=== PATIENT | female | born 1980 | race Caucasian/White ===

== ENCOUNTER 2021-10-09 01:17 | Day surgery (SDC) | payer BC, SELFPAY ==
[2021-10-03 08:43] VITALS: BMI 33.4
--- NOTE | 2021-10-03 09:12 | PC.NURSE ---
Report to the Outpatient Waiting Room, entrance under the green pavilion located off [facility], at 0700 on 10-09-21. OR Time: 0900. - You and your visitor will be asked a series of questions to screen for COVID 19 for your protection. - Only one visitor is allowed at this time. - The patient visitor is requested to leave or wait in car when not with patient. - A mask is required within the hospital. Patients may have clear liquids (water, carbonated beverages, clear teas, apple juice) until 3 hours prior to surgery with a maximum of 20 ounces. 0600 - No food from midnight until time of surgery - Infants may have breast milk until 4 hours before surgery, infant formula 6 hours prior to surgery. - Children will be allowed to drink immediately following surgery. If applicable, please bring a bottle or sippy cup to assist with drinking. Juice, water, soda, and popsicles are readily available. For infants on formula, please bring formula the day of surgery. Pacifiers are allowed. Take the following medications with a SIP of water the morning of surgery: control Medications to discontinue per physician: vitamins and supplements Date to take last dose: 10-06-21 Please no make-up, nail yi, hairspray, perfume, deodorant, or body powder the day of surgery. No jewelry (including any body piercings) or valuables the day of surgery, leave them at home. Please take a shower or bath the night before, or the morning of, surgery with an antibacterial soap. Wear comfortable, loose fitting clothing. Children are encouraged to wear pajamas. - Jewelry must be removed prior to entering the operating room. Rings and piercings that are not removed may be cut off. - The hospital will not accept responsibility for valuables. - Please leave all valuables, including medications, at home the day of surgery. If you are going home after surgery, a licensed full service vending driver must drive you home. - NO public transportation without another adult. - We recommend that an adult stay with you for 24 hours following discharge. - We also recommend that you do not drive, make important decision, drink alcoholic beverages, or take any drugs that were not prescribed by your health care provider for at least 24 hours after your discharge time. For Pediatric surgeries, we recommend two adults accompany the child home (only one inside the building at this time). Follow any additional instructions given to you from your surgeon. If you or anyone in your household have experienced Covid symptoms in the past week, please notify your surgeon or the nurse liaison at the phone number below for possible testing. Telephone instructions given to Galina Louise and asked if any additional questions and then verbalized understanding. Patient advised to call surgeon office or pre surgery nurse liaison [phone] if any additional questions.
--- NOTE | 2021-10-08 18:17 | PM.IMHP ---
H&P: HPI History of Present Illness Date/Time: 10/08/21 18:17 41-year-old 4 para 07/17/2002 female presents for permanent sterilization as well as evaluation of left adnexal cyst. Regarding the tubal sterilization we have discussed the permanence failure rate increased risk of ectopic and regret. She strongly desires to proceed. She has had an endometrial ablation in the past and no bleeding. She does relate some pelvic discomfort and ultrasound revealed a 2cm left adnexal cyst earlier this month. We will evaluate pelvis and removed if present. Chief Complaint: undesired fertility Review of Systems Review of Systems: All systems reviewed & are unremarkable except as noted in HPI and below PMFSH Past Medical History Medical History Abnormal Pap smear of cervix 2002 dysplasia Anxiety Asthma Foot fracture, left Gestational hypertension Ovarian cyst 2011,2013 Restless leg syndrome Screening mammogram, encounter for Surgical History Surgical History H/O LEEP 03/29/18 hscope d&c/novasure ablation/leep--irregular vaginal bleeding & cervical lesion--acute & chronic cervicitis History of dilation and curettage 03/29/18 hscope d&c/novasure ablation/leep--irregular vaginal bleeding & cervical lesion--acute & chronic cervicitis History of endometrial ablation 03/29/18 hscope d&c/novasure ablation/leep--irregular vaginal bleeding & cervical lesion--acute & chronic cervicitis History of laparoscopy 06/29/14 dx lscope--pelvic pain/dyspareunia History of sinus surgery 1997 sinus window/deviated septum 01/16/2014 scar tissue History of tonsillectomy and adenoidectomy 191 Family History Family History Grandparent Diabetes mellitus maternal grandfather maternal grandmother paternal grandfather Heart disease maternal grandfather Hypertension maternal grandfather Malignant neoplasm of lung paternal grandfather Parkinsons disease maternal grandfather Breast cancer paternal grandmother Mother Diabetes mellitus Hypertension Other Heart disease maternal uncle Father Hypertension Other Family history of alcoholism Family history of arthritis Family history of heart disease in male family member before age 55 Family history of mental disorder Social History Social History Smoking status: Never smoker Second hand tobacco smoke exposure: No Alcohol intake: current Drinks per week: 2 Alcohol use details: ocassional Substance use: never Substance use type: does not use Additional living arrangements comments: Additional occupation/education comments: educator Gender identity (if verbalized by the patient): Female Sexual Orientation (if Verbalized by the Patient): Straight or Heterosexual Spiritual care concerns: No Meds Home Medications and Allergies Home Medications Medication Instructions Recorded Confirmed Type bupropion HCl 300 mg 24 hr tablet, 300 mg PO HS 08/12/21 10/03/21 History extended release norethindrone 1 mg-ethinyl 1 tablet PO DAILY #84 tabs 09/13/21 10/03/21 Rx estradiol 10 mcg (24)-iron 10 mcg(2) tablet (Lo Loestrin Fe) cholecalciferol (vitamin D3) 50 50 mcg PO DAILY 10/03/21 10/03/21 History mcg (2,000 unit) tablet (Vitamin D3) Allergies Allergy/AdvReac Type Severity Reaction Status Date / Time shellfish derived Allergy Intermediate Rash Verified 10/03/21 08:42 amoxicillin Allergy Unknown vomiting Verified 10/03/21 08:41 and rash Penicillins Allergy Unknown vomiting Verified 10/03/21 08:41 and rash Sulfa (Sulfonamide Allergy Unknown rash Verified 10/03/21 08:41 Antibiotics) sulfanilamide Allergy Unknown rash Verified 09/15
[2021-10-09] VITALS (11 sets, daily range): BP systolic 120–157; BP diastolic 77–97; PULSE 59–87; RESP 14–20; TEMP 36.3–36.7; O2SAT 98–100
[2021-10-09] MEDS: ACETAMINOPHEN 500 MG TABLET 1000 MG PO (07:14)
[2021-10-09] MEDS: LACTATED RINGERS 1,000 ML 30 ML IV CONT ×2 (07:40→10:09)
[2021-10-09] MEDS: KETOROLAC 15 MG/ML VIAL (*BKC) IV PUSH (07:47)
--- NOTE | 2021-10-09 07:55 | WPDANESEPPF ---
Anes - Initial Pre Proc Eval Procedure: Operation Date: 10/09/21 09:00 Proposed Procedures p Laparoscopic Bilateral Salpingectomy, with Laparoscopic Left Ovarian Cyst - Juan Pablo Orr MD Date/Time: 10/09/21 07:55 Surgeon: Juan Pablo Orr MD Pre Op Diagnosis: desires sterilization, left ovarian cyst Patient Data Age: 41 Gender: F Height: 1.73 m Weight: 99.79 kg Allergies Allergy/AdvReac Type Severity Reaction Status Date / Time shellfish derived AdvReac Intermediate Rash Verified 10/09/21 07:13 amoxicillin AdvReac Mild vomiting Verified 10/09/21 07:13 and rash Penicillins AdvReac Mild vomiting Verified 10/09/21 07:13 and rash Sulfa (Sulfonamide AdvReac Mild rash Verified 10/09/21 07:13 Antibiotics) sulfanilamide AdvReac Mild rash Verified 10/09/21 07:13 Home Medications Medication Instructions Recorded Confirmed Type bupropion HCl 300 mg 24 hr tablet, 300 mg PO HS 08/12/21 10/09/21 History extended release norethindrone 1 mg-ethinyl 1 tablet PO DAILY #84 tabs 09/13/21 10/09/21 Rx estradiol 10 mcg (24)-iron 10 mcg(2) tablet (Lo Loestrin Fe) cholecalciferol (vitamin D3) 50 50 mcg PO DAILY 10/03/21 10/09/21 History mcg (2,000 unit) tablet (Vitamin D3) Patient hx anesthesia problems: none Family hx anesthesia problems: none Results Review: All pre-operative results and documents have been reviewed as part of the pre-operative evaluation. [facility] Past Medical History Medical History Abnormal Pap smear of cervix 2003 dysplasia Anxiety Asthma Foot fracture, left Gestational hypertension Ovarian cyst 2011,2013 Restless leg syndrome Screening mammogram, encounter for Surgical History Surgical History H/O LEEP 03/29/18 hscope d&c/novasure ablation/leep--irregular vaginal bleeding & cervical lesion--acute & chronic cervicitis History of dilation and curettage 03/29/18 hscope d&c/novasure ablation/leep--irregular vaginal bleeding & cervical lesion--acute & chronic cervicitis History of endometrial ablation 03/29/18 hscope d&c/novasure ablation/leep--irregular vaginal bleeding & cervical lesion--acute & chronic cervicitis History of laparoscopy 06/29/14 dx lscope--pelvic pain/dyspareunia History of sinus surgery 1996 sinus window/deviated septum 01/16/2014 scar tissue History of tonsillectomy and adenoidectomy 191 Family History Family History Grandparent Diabetes mellitus maternal grandfather maternal grandmother paternal grandfather Heart disease maternal grandfather Hypertension maternal grandfather Malignant neoplasm of lung paternal grandfather Parkinsons disease maternal grandfather Breast cancer paternal grandmother Mother Diabetes mellitus Hypertension Other Heart disease maternal uncle Father Hypertension Other Family history of alcoholism Family history of arthritis Family history of heart disease in male family member before age 55 Family history of mental disorder Social History Social History Smoking status: Never smoker Second hand tobacco smoke exposure: No Alcohol intake: current Drinks per week: 2 Alcohol use details: ocassional Substance use: never Substance use type: does not use Living arrangements: with family Additional living arrangements comments: Additional occupation/education comments: educator Gender identity (if verbalized by the patient): Female Sexual Orientation (if Verbalized by the Patient): Straight or Heterosexual Spiritual care concerns: No Anes - Eval Final PreProcedure Day of Procedure 10/09/21 07:55 Patient weight: obese Heart: regular rate and rhythm Lungs: wyatt
--- NOTE | 2021-10-09 08:16 | WPDHPUPDATE1 ---
History and Physical Update Update Date/Time: 10/09/21 08:16 History and Physical has been reviewed, including an updated exam of the patient. There are NO changes in the patient's condition. Risks, benefits, and alternatives have been discussed and questions answered. Patient agrees to proceed with procedure.
--- NOTE | 2021-10-09 09:19 | W.PM.PROC2 ---
Procedure Note - Detailed Date of Procedure 10/09/21 Pre-op Diagnosis desires sterilization, left ovarian cyst Post-op Diagnosis Other (1. Desires sterilization 2. Right ovarian cyst) Procedure Performed 1. Bilateral salpingectomy 2. Right ovarian cystectomy Surgeon Juan Pablo Orr MD Anesthesia General Indications 1. Undesired fertility 2. Pelvic pain Findings 1. Right ovarian cyst clear fluid filled approximate 2-3 cm. Description of Procedure Patient prepped in usual manner for this procedure cervical os from placed uterine mobility throughout the case. Abdominal trocar sites were placed under direct visualization and bilaterally the tubes were removed with the Harmonic scalpel by cauterizing cutting the mesial salpinx bilaterally and these were removed without difficulty. Right ovarian cyst was noted and the ovary was incised and cyst removed without difficulty. Small amount of oozing therefore Hemabate was placed. Gas was allowed to escape ovarian cyst bed was hemostatic without pressure and all the incisions were approximated using 4-0 Monocryl. Patient sent to recovery room stable condition. Estimated Blood Loss 50 Complications No immediate complications Condition Stable Disposition PACU [facility] Billing Surgery - Charge Forward: Surgery Billing
[2021-10-09] MEDS: fentaNYL CITRATE INJ (*CRX) 100 MCG/2 ML VIAL 25 MCG IV PUSH ×4 (09:53→10:38)
[2021-10-09] MEDS: ONDANSETRON INJ 4 MG/2 ML VIAL IV PUSH (11:08)
== END 2021-10-09 12:35 | disposition home or self-care (01) ==
PROVIDERS: PCP Internal Medicine; Visit Provider Obstetrics & Gynecology
PROC: (CPT 49320; principal; 2021-10-09 09:00)
DX: Z30.2 Encounter for sterilization (principal); N83.01 Follicular cyst of right ovary; F41.9 Anxiety disorder, unspecified; E66.9 Obesity, unspecified; Z68.34 Body mass index [BMI] 34.0-34.9, adult
CPT/HCPCS: 58661; 58662; 88302; 88305; A9270; J0330; J1100; J1885; J2250; J2405; J2704; J3010; J7030; J7120